=== PATIENT | male | born 1950 | race Caucasian/White ===

== ENCOUNTER → 2016-05-23 | Day surgery (SDC) | payer OTHER ==
[2016-05-11 14:52] VITALS: Ht 177.8 cm; Wt 96.8 kg
[~2016-05-23] VITALS: Ht 177.8 cm; Wt 96.8 kg
[~2016-05-23] MED LIST: 500ML BSS 0.3ML EPI 1:1000PF IRRIG ONE; ACETAMINOPHEN 325 MG TAB PO PRN; AMVISC PLUS 0.8ML SYRINGE INT OCU ONE; ASPCH81X PO; ATOR-24 PO; ATROPINE SULFATE 0.1 MG/ML 5ML SYR IV PRN; BSS FLUSH ONE; ENDOCOAT 0.85ML SYRINGE INT OCU ONE; EpINEphrine INJ 1MG/ML AMP 1 MG/ML AMP ONE; LACTATED RINGER'S 1000ML 500 ML IV SCH; LIDOCAINE 4% OP SOLN DROP CHARGE ONE; LIDOCAINE 4% OP SOLN DROP CHARGE OPL SCH; LIDOCAINE HCL 1% MPF 2 ML VIAL ONE; LSN/10125 PO; MIDAZOLAM HCL 1 MG/ML 2ML VIAL ONE; MIX: 4ML BSS 1ML EPI 1:1000 PF TOP ONE; MOXIFLOXACIN OPH SOLN PER DROP CHARGE ONE; POVIDONE-IODINE OP SOLN 30 ML BTL ONE; PRED1SUS3 OPL; PROPARACAINE 0.5% OP SOLN PER DROP CHARGE OPL SCH; TOBRAMYCIN/DEXAMETHASONE OPH OINT PER APPLN CHARGE ONE; VISCOAT 0.5ML SYRINGE INT OCU ONE
--- NOTE | 2016-05-23 08:34 | History & Physical Bridge - [place] ---
H&P Re-Evaluation Bridge Note: I have examined the patient, reviewed the History & Physical and in the interval since the performance of the History & Physical I have noted the following changes of clinical significance: No changes noted
[2016-05-23] MEDS: PHENYLEPHRINE HCL 2.5% OP SOLN PER DROP CHARGE OPL SCH ×3 (08:45→08:55)
[2016-05-23] MEDS: TROPICAMIDE 1% OP SOLN PER DROP CHARGE OPL SCH ×3 (08:46→08:56)
[2016-05-23] MEDS: CYCLOPENTOLATE HCL 1% OP SOLN PER DROP CHARGE OPL SCH ×3 (08:47→08:57)
[2016-05-23] MEDS: MOXIFLOXACIN OPH SOLN PER DROP CHARGE OPL SCH ×3 (08:48→09:08)
--- NOTE | 2016-05-23 09:49 | [facility] Post Operative Brief Note ---
Immediate Operative Summary Operative Date May 23, 2016. Pre-Operative Diagnosis Left Eye Cataract Post-Operative Diagnosis Same Procedure(s) Performed Left Eye Cataract Phacoemulsification With Intraocular Lens Implant Surgeon Dr. Bryd [employer] Leader Surgeon(s) None Estimated Blood Loss None Findings left cataract Specimens None Complication(s) None Disposition
--- NOTE | 2016-05-23 09:50 | [facility] Operative Report ---
Operative Report Date of Service May 23, 2016. Operative Report Phaco with monofocal IOL DATE OF OPERATION: 05/23/16 PREOPERATIVE DIAGNOSIS: Senile nuclear cataract, left eye POSTOPERATIVE DIAGNOSIS: Senile nuclear cataract, left eye PROCEDURE PERFORMED: Phacoemulsification with intraocular lens implantation, left eye SURGEON: Dr. Toro Byrd ANESTHESIA: Topical with 1% intracameral lidocaine and monitored anesthesia care COMPLICATIONS: None DESCRIPTION OF PROCEDURE: After positively identifying the patient both verbally and by wristband in the preoperative area, the left eye was marked as the operative eye. The patient was then brought back to the operating room by the anesthesia and nursing staff where they were given a drop of Lidocaine and betadine into the operative eye. They were then sterilely prepped and draped in the standard fashion typical for ophthalmic surgery. Steri-strips were placed along the upper eyelids to keep the lashes back, and a lid speculum was placed into the operative eye. At this point, a documented time out was performed with members of the ophthalmology, nursing, and anesthesia staffs all agreeing upon the correct patient, correct location for surgery, correct procedure, and correct type and power of intraocular lens to be implanted. The microscope was then swung into position. First, a paracentesis wound was made using a sideport blade. Then, in sequence, 1% preservative-free lidocaine followed by Endocoat viscoelastic was injected into the anterior chamber. Next , the main incision was made with a keratome blade in triplanar fashion. A sharp cystotome was introduced into the eye and used to create a tear in the anterior capsule, which was directed into a continuous curvilinear capsulorrhexis using Utrata forceps. Hydrodissection was then performed with BSS on a flat-tip cannula. Next, the phacoemulsification handpiece was introduced into the eye and used to remove the nucleus in a [id number] fashion. This was done without complication and then the irrigation-aspiration handpiece was introduced into the eye and used to remove all remaining cortical and epinuclear material. Amvisc was then injected into the anterior chamber as well as into the capsular bag and using the lens injector system, an MX60 15.5 D lens, serial number [id number], and expiration date 07/2018 was injected into the capsular bag and rotated into the correct position. Next, the irrigation- aspiration handpiece was used to remove all remaining Amvisc. BSS was used to hydrate the main wound, and then BSS was injected into the paracentesis site to reach physiologic pressure and then the main wound was checked and found to be watertight. The patient was given drops of Vigamox and Tobradex ointment into the operative eye, and then the surrounding area was cleaned and dried. A clear plastic shield was placed over the eye and the patient was then sat up and taken from the operating room by the anesthesia staff having tolerated the procedure well and suffering no complications. DISPOSITION: The patient was returned to the recovery room in stable condition. I attest to the content of the Intraoperative Record and any orders documented therein. Any exceptions are noted below.
--- NOTE | 2016-05-23 09:50 | Discharge Instructions-SurgCtr ---
Discharge Instructions Date of Service May 23, 2016. Visit Reason for Visit: Cataract Left Eye Discharge Discharge Diagnosis / Problem: left cataract Discharge Goals Goal(s): Decrease discomfort, Improve function Activity Recommendations Activity Limitations: as noted below Anesthesia . Post Anesthesia Instructions: If you have had General Anesthesia or IV Sedation: * Do not drive today. * Resume driving when surgeon permits. * Do not make important decisions or sign legal documents today. * Call surgeon for: 1. Temperature elevations greater than 101 degrees F. 2. Uncontrollable pain. 3. Excessive bleeding. 4. Persistent nausea and vomiting. 5. Medication intolerance (nausea, vomiting or rash). * For nausea and vomiting use only clear liquids such as: tea, soda, bouillon until nausea subsides, then gradually increase diet as tolerated. * If you have any concerns or questions, call your surgeon's office. If physician is unavailable and it is an emergency, call 911 or go to the nearest emergency room. . Instructions / Follow-Up Instructions / Follow-Up ACTIVITY RECOMMENDATIONS: * Light activities. * You may walk outside, read, watch television. * You may notice redness on the white part of the eye and some blurry vision - this is normal. MEDICATIONS: Resume previous medications unless instructed otherwise by your surgeon. Start all eye drops at 12 pm today: * Eye drops (today): Prednisone - one drop in operative eye every 2 hours while awake Ofloxacin - one drop in operative eye every 2 hours while awake SPECIAL CARE INSTRUCTIONS: * Tape plastic shield over eye to sleep at night. Call your doctor at with any concerns or problems. FOLLOW UP VISIT: Follow-up with Dr Byrd at [place] office as scheduled. Diet Recommendations Home Diet: no limitations Procedures Procedures Performed: Left Eye Cataract Phacoemulsification With Intraocular Lens Implant Pending Studies Studies pending at discharge: no Medical Emergencies . Who to Call and When: Medical Emergencies: If at any time you feel your situation is an emergency, please call 911 immediately. . Non-Emergent Contact Non-Emergency issues call your: Surgeon . . "Provider Documentation" section prepared by Toro Byrd.
[2016-05-23 09:52] VITALS: TEMP 36.6
[2016-05-23 10:09] VITALS: BP 131/79; PULSE 58; O2SAT 99
--- NOTE | 2016-05-23 10:10 | Anesthesia Progress Nt - [facility] ---
Anesthesia Post Op Note Date & Time May 23, 2016 at 10:10 Vital Signs Pain Intensity: 0 Vital Signs Past 12 Hours Date Time Temp Pulse Resp B/P Pulse Ox O2 Delivery O2 Flow Rate FiO2 05/23/16 09:52 36.6 55 18 131/74 96 Room Air 05/23/16 08:34 36.9 61 20 125/83 97 Room Air Notes Mental Status: alert / awake / arousable, participated in evaluation Pt Amnestic to Procedure: Yes Nausea / Vomiting: adequately controlled Pain: adequately controlled Airway Patency, RR, SpO2: stable & adequate BP & HR: stable & adequate Hydration State: stable & adequate Anesthetic Complications: no major complications apparent
== END | disposition home or self-care (01) ==
LOC: X.SURG 08:19
PROVIDERS: ATTEND Ophthalmology
DX: H25.12 Age-related nuclear cataract, left eye (principal); I10 Essential (primary) hypertension; E78.5 Hyperlipidemia, unspecified; I51.9 Heart disease, unspecified; Z79.82 Long term (current) use of aspirin

== ENCOUNTER → 2016-06-06 | Day surgery (SDC) | payer OTHER ==
[2016-05-31 07:44] VITALS: Ht 177.8 cm; Wt 96.8 kg
[~2016-06-06] VITALS: Ht 177.8 cm; Wt 96.8 kg
[~2016-06-06] MED LIST changes: +EpHEDrine SULFATE INJ 50 MG/ML AMP IV PRN; -LIDOCAINE 4% OP SOLN DROP CHARGE OPL SCH; +LIDOCAINE 4% OP SOLN DROP CHARGE OPR SCH; -PROPARACAINE 0.5% OP SOLN PER DROP CHARGE OPL SCH; +PROPARACAINE 0.5% OP SOLN PER DROP CHARGE OPR SCH; -VISCOAT 0.5ML SYRINGE INT OCU ONE
[2016-06-06] MEDS: MOXIFLOXACIN OPH SOLN PER DROP CHARGE OPR SCH ×3 (06:04→08:45)
[2016-06-06] MEDS: PHENYLEPHRINE HCL 2.5% OP SOLN PER DROP CHARGE OPR SCH ×3 (08:32→08:42)
[2016-06-06] MEDS: TROPICAMIDE 1% OP SOLN PER DROP CHARGE OPR SCH ×3 (08:33→08:43)
[2016-06-06] MEDS: CYCLOPENTOLATE HCL 1% OP SOLN PER DROP CHARGE OPR SCH ×3 (08:34→08:44)
--- NOTE | 2016-06-06 09:46 | [facility] Post Operative Brief Note ---
Immediate Operative Summary Operative Date Jun 06, 2016. Pre-Operative Diagnosis Cataract Right Eye Post-Operative Diagnosis Same Procedure(s) Performed Right Cataract Phacoemulsification With Intraocular Lens Implant Surgeon Dr. Byrd Fur Nailer Surgeon(s) None Estimated Blood Loss 0 mL Findings right cataract Specimens None Complication(s) None Disposition
--- NOTE | 2016-06-06 09:47 | [facility] Operative Report ---
Operative Report Date of Service Jun 06, 2016. Operative Report Phaco with monofocal IOL DATE OF OPERATION: 06/06/16 PREOPERATIVE DIAGNOSIS: Senile nuclear cataract, right eye POSTOPERATIVE DIAGNOSIS: Senile nuclear cataract, right eye PROCEDURE PERFORMED: Phacoemulsification with intraocular lens implantation, right eye SURGEON: Dr. Toro Byrd ANESTHESIA: Topical with 1% intracameral lidocaine and monitored anesthesia care COMPLICATIONS: None DESCRIPTION OF PROCEDURE: After positively identifying the patient both verbally and by wristband in the preoperative area, the right eye was marked as the operative eye. The patient was then brought back to the operating room by the anesthesia and nursing staff where they were given a drop of Lidocaine and betadine into the operative eye. They were then sterilely prepped and draped in the standard fashion typical for ophthalmic surgery. Steri-strips were placed along the upper eyelids to keep the lashes back, and a lid speculum was placed into the operative eye. At this point, a documented time out was performed with members of the ophthalmology, nursing, and anesthesia staffs all agreeing upon the correct patient, correct location for surgery, correct procedure, and correct type and power of intraocular lens to be implanted. The microscope was then swung into position. First, a paracentesis wound was made using a sideport blade. Then, in sequence, 1% preservative-free lidocaine followed by Endocoat viscoelastic was injected into the anterior chamber. Next , the main incision was made with a keratome blade in triplanar fashion. A sharp cystotome was introduced into the eye and used to create a tear in the anterior capsule, which was directed into a continuous curvilinear capsulorrhexis using Utrata forceps. Hydrodissection was then performed with BSS on a flat-tip cannula. Next, the phacoemulsification handpiece was introduced into the eye and used to remove the nucleus in a [id number] fashion. This was done without complication and then the irrigation-aspiration handpiece was introduced into the eye and used to remove all remaining cortical and epinuclear material. Amvisc was then injected into the anterior chamber as well as into the capsular bag and using the lens injector system, an MX60 16.0 D lens, serial number [id number], and expiration date 06/2017 was injected into the capsular bag and rotated into the correct position. Next, the irrigation- aspiration handpiece was used to remove all remaining Amvisc. BSS was used to hydrate the main wound, and then BSS was injected into the paracentesis site to reach physiologic pressure and then the main wound was checked and found to be watertight. The patient was given drops of Vigamox and Tobradex ointment into the operative eye, and then the surrounding area was cleaned and dried. A clear plastic shield was placed over the eye and the patient was then sat up and taken from the operating room by the anesthesia staff having tolerated the procedure well and suffering no complications. DISPOSITION: The patient was returned to the recovery room in stable condition. I attest to the content of the Intraoperative Record and any orders documented therein. Any exceptions are noted below.
--- NOTE | 2016-06-06 09:48 | Discharge Instructions-SurgCtr ---
Discharge Instructions Date of Service Jun 06, 2016. Visit Reason for Visit: Cataract Right Eye Discharge Discharge Diagnosis / Problem: right cataract Discharge Goals Goal(s): Decrease discomfort, Improve function Activity Recommendations Activity Limitations: as noted below Anesthesia . Post Anesthesia Instructions: If you have had General Anesthesia or IV Sedation: * Do not drive today. * Resume driving when surgeon permits. * Do not make important decisions or sign legal documents today. * Call surgeon for: 1. Temperature elevations greater than 101 degrees F. 2. Uncontrollable pain. 3. Excessive bleeding. 4. Persistent nausea and vomiting. 5. Medication intolerance (nausea, vomiting or rash). * For nausea and vomiting use only clear liquids such as: tea, soda, bouillon until nausea subsides, then gradually increase diet as tolerated. * If you have any concerns or questions, call your surgeon's office. If physician is unavailable and it is an emergency, call 911 or go to the nearest emergency room. . Instructions / Follow-Up Instructions / Follow-Up ACTIVITY RECOMMENDATIONS: * Light activities. * You may walk outside, read, watch television. * You may notice redness on the white part of the eye and some blurry vision - this is normal. MEDICATIONS: Resume previous medications unless instructed otherwise by your surgeon. Start all eye drops at 12 pm today: * Eye drops (today): Prednisone - one drop in operative eye every 2 hours while awake Ofloxacin - one drop in operative eye every 2 hours while awake SPECIAL CARE INSTRUCTIONS: * Tape plastic shield over eye to sleep at night. Call your doctor at with any concerns or problems. FOLLOW UP VISIT: Follow-up with Dr Byrd at [place] office as scheduled. Diet Recommendations Home Diet: no limitations Procedures Procedures Performed: Right Cataract Phacoemulsification With Intraocular Lens Implant Pending Studies Studies pending at discharge: no Medical Emergencies . Who to Call and When: Medical Emergencies: If at any time you feel your situation is an emergency, please call 911 immediately. . Non-Emergent Contact Non-Emergency issues call your: Surgeon . . "Provider Documentation" section prepared by Toro Byrd.
[2016-06-06 09:49] VITALS: TEMP 36.8
[2016-06-06 10:06] VITALS: BP 124/79; PULSE 59; O2SAT 96
--- NOTE | 2016-06-06 10:19 | Anesthesia Progress Nt - [facility] ---
Anesthesia Post Op Note Date & Time Jun 06, 2016 at 10:19 Vital Signs Pain Intensity: 0 Vital Signs Past 12 Hours Date Time Temp Pulse Resp B/P Pulse Ox O2 Delivery O2 Flow Rate FiO2 06/06/16 10:06 59 18 124/79 96 Room Air 06/06/16 09:49 36.8 57 16 130/79 95 Room Air 06/06/16 08:19 36.6 70 16 132/85 94 Room Air Notes Mental Status: alert / awake / arousable, participated in evaluation Pt Amnestic to Procedure: Yes Nausea / Vomiting: adequately controlled Pain: adequately controlled Airway Patency, RR, SpO2: stable & adequate BP & HR: stable & adequate Hydration State: stable & adequate Anesthetic Complications: no major complications apparent
== END | disposition home or self-care (01) ==
LOC: X.SURG 08:12
PROVIDERS: ATTEND Ophthalmology
DX: H25.11 Age-related nuclear cataract, right eye (principal); Z98.42 Cataract extraction status, left eye; I10 Essential (primary) hypertension; I51.9 Heart disease, unspecified; E78.5 Hyperlipidemia, unspecified

== ENCOUNTER 2018-01-29 09:56 | Inpatient (IN) ==
--- NOTE | 2018-01-10 10:05 | Anesthesiology Consultation ---
Date of Service January 10, 2018 Assessment & Plan Plan: - Patient states Dr. Ahumada told him to continue his lisinopril-HCTZ perioperatively. Left message with surgeon's office to make them aware that we typically have patients hold that medication AM DOS but to let us know if Dr. Ahumada feels that this medication needs to be continued perioperatively for BP control/aneurysms.* - Cardio= 12/19/17= "cleared from a cardiac standpoint for his upcoming surgical procedure." Chart Review Chart Review: Acceptable Risk for Surgery and Patient seen in Pre Admission Testing History Surgery Operation Date: 01/17/18 11:30 Proposed Procedures p Percutaneous Endovascular Aortic Aneurysm Repair, - Conrad Ahumada MD s Abdominal Aorta and Iliac Arteries - Conrad Ahumada MD Height/Weight Height: 5 ft 10.5 in Weight: 96.6 kg Allergies Allergy/AdvReac Type Severity Reaction Status Date / Time No Known Allergies Allergy Verified 01/10/18 09:47 Medications Home Medications Medication Instructions Recorded Confirmed Last Taken aspirin 81 mg PO QPM 01/10/18 01/10/18 Unknown atorvastatin 40 mg PO QPM 01/10/18 01/10/18 Unknown ibuprofen 200 mg PO QID PRN 01/10/18 01/10/18 Unknown indomethacin 50 mg PO BID PRN 01/10/18 01/10/18 Unknown lisinopril-hydrochlorothiazide 1 tab PO QAM 01/10/18 01/10/18 Unknown Past Medical History Medical History AAA (abdominal aortic aneurysm) REASON FOR PROCEDURE CAD (coronary artery disease) STENT X 1 TO RCA (2010) Gout Hearing deficit History of [place] (myocardial infarction) STENT X 1 TO RCA (2010) Hyperlipidemia Hypertension Iliac aneurysm REASON FOR PROCEDURE Obesity PAD (peripheral artery disease) Past Family History Family History Grandmother Family history of diabetes mellitus Mother Family history of diabetes mellitus Family/Other Family history of diabetes mellitus Past Surgical History Surgical History History of cardiac cath STENT X 1 TO RCA (2010) History of cataract surgery right and left Hx of colonoscopy Hx of wisdom tooth extraction Past Anesthesia History No Hx of Anesthesia Complications Patient denies family history of issues with anesthesia complications. History of PONV No Motion Sickness Screening History of Motion Sickness: No Social History Smoking Status: Former smoker Do You Dip or Chew Tobacco: No Smoking End Date: QUIT 2010 Hx Alcohol Use: Yes alcohol intake frequency: holidays/special occasions only Hx Substance Use: No Exercise / Class Metabolic Activity II 4-5 Yardwork/Stairs/Walk up hill Review of Systems Patient denies chest pain, shortness of breath, dyspnea on exertion, reflux, cough, wheezing, palpitations. Physical Exam Vital Signs VITALS BP 163/70 P 59 TEMP 98.1 RESP 18 SP02 98%RA Full neck and c-spine range of motion. Full TMJ range of motion. TMD 3 finger breaths Mallampati Score 2 Dentition: intact, caps on sides/molars Lungs: clear throughout to auscultation Cardiac: regular rate and rhythm, no murmurs noted Spine: normal Carotid arteries: negative bruit Extremities: no edema Testing Laboratory Results Blood Type O Positive 01/10/18 10:17 Antibody Screen NEGATIVE 01/10/18 10:17 01/10/18 WBC 7.5 H/H 15.3/47.3 PLATELETS 168 SODIUM 142 POTASSIUM 4.1 CHLORIDE 106 CO2 31 BUN 20 CREATININE 1.21 GLUCOSE 74 PT 10.4 PTT 30.0 INR 1.0 Electrocardiogram Date: 01/10/18 Findings: + SB @ (54) Chest X-Ray Date: 01/10/18 Findings: + NAD Mild left basilar opacity suggests atelectasis or epicardial fat pad. Echocardiogram Date: 06/17/15 EF 55-60%. Mild RVD/MENG. Thickened AV/MV. Borderline aortic root dilation. Grade I DD. Stress Test Date: 01/15/14 Type: nuclear No significant ischemia. No RWMA. LVEF 58%. 59% MPHR. Other Testing Chest CT= 12/23/17= Atherosclerosis with multifocal mild ectasia of the infrarenal abdominal aorta measures up to 2.8cm. B/L common iliac artery aneurysms (Right: 2.6cm, left: 3.1cm). Right internal iliac artery aneurysm 1.8cm (unchanged). Noncalcified atherosclerotic plaque results in a slightly greater degree of luminal stenosis in the left common iliac artery in comparison to the right. Bilateral adrenal nodules, indeterminant though statistically most likely benign adenomas. CTA Pelvis= 11/29/17= Bilateral common iliac artery aneurysms and a right internal iliac artery aneurysm as described above. 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
--- NOTE | 2018-01-10 10:12 | PAT Medication Instructions ---
Medication Instructions Date of Service January 10, 2018 Home Medications aspirin 81 mg PO QPM atorvastatin 40 mg PO QPM ibuprofen 200 mg PO QID PRN indomethacin 50 mg PO BID PRN lisinopril-hydrochlorothiazide 1 tab PO QAM Per surgeon's instructions ibuprofen 200 mg PO QID PRN indomethacin 50 mg PO BID PRN Hold the morning of surgery lisinopril-hydrochlorothiazide 1 tab PO QAM Take evening before surgery aspirin 81 mg PO QPM (okay to continue per surgeon) atorvastatin 40 mg PO QPM Other Notes If you have any questions please call us at [phone] or [phone] or [phone] or [phone]
--- NOTE | 2018-01-10 11:21 | XRay Report ---
XR chest Pre-admission PA/Lat CLINICAL HISTORY: Preoperative evaluation. COMPARISON STUDY: Chest radiograph January 23, 2013 2 FINDINGS: Mild left basilar opacity suggests atelectasis or epicardial fat pad. Cardiac size is at th e upper limits of normal. There is no evidence for pulmonary edema or pneumonia. No pneumothorax or p leural effusion is noted. IMPRESSION: No acute cardiopulmonary findings. Electronically signed by: Bebo Nava M.D. 01/10/2018 11:20 AM
--- NOTE | 2018-01-21 11:46 | Post Operative Brief Note ---
Immediate Post Op Note v1 Date of Surgery January 21, 2018 Pre & Post Diagnosis Operation Date: 02/11/18 07:30 <No data on this case meets the specified criteria> Procedure Operation Date: 02/11/18 07:30 <No data on this case meets the specified criteria> Surgeon Conrad Ahumada MD
--- NOTE | 2018-01-29 06:13 | History & Physical Report ---
Date of Service January 29, 2018 Assessment & Plan (1) AAA (abdominal aortic aneurysm) without rupture: Patient is admitted for a PEVAR of his abdominal aortoiliac aneuryusms. I have discussed the risks options and benefits of the procedure with the patient. The patient understands the risks options and benefits and agrees to the procedure. History of Present Illness Chief Complaint: AAA and iliac aneurysms Primary Care Provider: Jadiel Moya MD Mr. Te Hewitt is a 67-year-old male with a history of CAD, hypertension, hyperlipidemia with known iliac artery aneurysms. Patient last had imaging 2 years ago. He reports no major changes in his health during that time. He denies any chest, abdominal pain, or leg pain. He presents today with an ultrasound demonstrating an increase in the size of his aneurysms with the left iliac artery measuring 3.2 cm and the right common iliac measuring 2.5 cm. . The patient had a CTA done which suggested a 3.2 common iliac artery aneurysm on the left and a 2.6 cm common iliac artery aneurysm on the right. He was seen here to discuss possible surgical intervention due to the fact that the CT pelvis had indicated some aneurysmal dilation of his distal aorta, we did want to have better visualization of this and sent him for a full CTA abdomen and pelvis to better evaluate. This showed a small aaa as well. The CTA done prior to this appointment redemonstrates his bilateral common iliac artery aneurysms at 2.6 on the right and 3.1 on the left. His distal abdominal aorta is dilated to 2.9 cm. Allergies Allergy/AdvReac Type Severity Reaction Status Date / Time No Known Allergies Allergy Verified 01/10/18 09:47 Home Medications Home Medications Medication Instructions Recorded Confirmed Type aspirin 81 mg PO QPM 01/10/18 01/10/18 History atorvastatin 40 mg PO QPM 01/10/18 01/10/18 History ibuprofen 200 mg PO QID PRN 01/10/18 01/10/18 History indomethacin 50 mg PO BID PRN 01/10/18 01/10/18 History lisinopril-hydrochlorothiazide 1 tab PO QAM 01/10/18 01/10/18 History Past Med/Surg History Medical History AAA (abdominal aortic aneurysm) REASON FOR PROCEDURE CAD (coronary artery disease) STENT X 1 TO RCA (2010) Gout Hearing deficit History of [place] (myocardial infarction) STENT X 1 TO RCA (2010) Hyperlipidemia Hypertension Iliac aneurysm REASON FOR PROCEDURE Obesity PAD (peripheral artery disease) Surgical History History of cardiac cath STENT X 1 TO RCA (2010) History of cataract surgery right and left Hx of colonoscopy Hx of wisdom tooth extraction Family History Grandmother Family history of diabetes mellitus Mother Family history of diabetes mellitus Family/Other Family history of diabetes mellitus Social History Current Living Situation: Spouse Other Information That Helps Us Care for You: No Feels Safe at Home: Yes Safety Concerns: Feels Safe At This Time Smoking Status: Former smoker Do You Dip or Chew Tobacco: No Smoking End Date: QUIT 2010 Hx Alcohol Use: Yes Alcohol Intake Frequency: holidays/special occasions only Hx Substance Use: No Beliefs That Will Affect Care: None Preferred Language: Armenian Communication Ability: Effective Review of Systems All systems reviewed & are unremarkable except as noted in HPI & below Cardiovascular: no chest pain, no chest pain with activity, no dyspnea on exertion and no claudication Physical Exam 2 Vital Signs (Past 24 Hours): On exam, patient has a heart rate of 64, a blood pressure of 132/82 in the left arm, 130/64 in the right arm, satting at 98% on room air. He is a middle-aged gentleman, in no acute distress. Very pleasant. He is sitting up in the chair. No audible carotid bruits. Regular rate and rhythm of his heart. Chest is clear to auscultation bilaterally. He had palpable 2+ radial, femoral, DP, and PT pulses bilaterally. Abdomen was soft, nontender, nondistended, but was unable to appreciate any palpable pulsatile masses. Groin was soft bilaterally. No distal signs of ischemia. His feet were warm and well perfused with brisk cap refill. No wounds or ulcerations.
[~2018-01-29 09:56] MED LIST changes: -500ML BSS 0.3ML EPI 1:1000PF IRRIG ONE; -ACETAMINOPHEN 325 MG TAB PO PRN; -AMVISC PLUS 0.8ML SYRINGE INT OCU ONE; -ASPCH81X PO; -ATOR-24 PO; -ATROPINE SULFATE 0.1 MG/ML 5ML SYR IV PRN; -BSS FLUSH ONE; +CEFAZOLIN 2000MG 2,000 MG/15 ML SYR IV SCH; -ENDOCOAT 0.85ML SYRINGE INT OCU ONE; -EpHEDrine SULFATE INJ 50 MG/ML AMP IV PRN; -EpINEphrine INJ 1MG/ML AMP 1 MG/ML AMP ONE; -LACTATED RINGER'S 1000ML 500 ML IV SCH; -LIDOCAINE 4% OP SOLN DROP CHARGE ONE; -LIDOCAINE 4% OP SOLN DROP CHARGE OPR SCH; -LIDOCAINE HCL 1% MPF 2 ML VIAL ONE; +LR 15ML/HR IV SCH; -LSN/10125 PO; -MIDAZOLAM HCL 1 MG/ML 2ML VIAL ONE; -MIX: 4ML BSS 1ML EPI 1:1000 PF TOP ONE; -MOXIFLOXACIN OPH SOLN PER DROP CHARGE ONE; -POVIDONE-IODINE OP SOLN 30 ML BTL ONE; -PRED1SUS3 OPL; -PROPARACAINE 0.5% OP SOLN PER DROP CHARGE OPR SCH; +SODIUM CHLORIDE 0.9% 1000ML 1,000 ML IV SCH; +SODIUM CHLORIDE 0.9% 1000ML IV SCH; -TOBRAMYCIN/DEXAMETHASONE OPH OINT PER APPLN CHARGE ONE
[2018-01-29 10:44] LABS: BUN Creatinine Ratio 20.4 (10-20); Calcium 8.5 mg/dl (8.5-10.1); Creatinine Clr Calc Pharmacy 68.9 ml/min; Est GFR (African American) 69.8; Est GFR (Non-African American) 60.2; Potassium 3.9 mmol/L (3.5-5.1)
[2018-01-29] MEDS ORDERED: KETOROLAC TROMETHAMINE 15 MG/ML VIAL IV PRN (12:31)
[2018-01-29] MEDS ORDERED: fentaNYL citrate 100 MCG/2 ML VIAL IV PRN (12:31)
[2018-01-29] MEDS ORDERED: ATROPINE SULFATE 0.1 MG/ML 5ML SYR IV PRN (12:31)
[2018-01-29] MEDS ORDERED: LABETALOL HCL IV 5 MG/ML 20ML IV PRN (12:31)
[2018-01-29] MEDS ORDERED: ONDANSETRON INJ 2 MG/ML 2 ML VIAL IV PRN ×2 (12:31→17:47)
[2018-01-29] MEDS ORDERED: ePHEDrine sulfate 50 MG/ML AMP IV PRN (12:31)
[2018-01-29] MEDS ORDERED: DEXAMETHASONE SOD INJ 4 MG/ML VIAL IV PRN (12:31)
[2018-01-29] MEDS ORDERED: HYDROmorphone INJ 2 MG/ML SYR/VIAL IV PRN (12:31)
[2018-01-29] MEDS ORDERED: BUPIVACAINE/EPINEPHRINE 0.5% MPF 1:200,000 30 ML VIAL ONE (13:19)
[2018-01-29] MEDS ORDERED: MIDAZOLAM HCL 1 MG/ML 2ML VIAL ONE ×2 (13:24→13:26)
[2018-01-29] MEDS ORDERED: LIDOCAINE HCL 2% MPF (LOCAL) 5 ML VIAL INFIL ONE ×2 (13:24)
[2018-01-29] MEDS ORDERED: LARYING-O-JET KIT (LTA) ONE (13:25)
[2018-01-29] MEDS ORDERED: ePHEDrine sulfate 50 MG/ML SYR ONE (13:25)
[2018-01-29] MEDS ORDERED: fentaNYL citrate 100 MCG/2 ML VIAL ONE (13:25)
[2018-01-29] MEDS ORDERED: PROPOFOL IV EMULSION 10 MG/ML 20 ML VIAL IV ONE (13:25)
[2018-01-29] MEDS ORDERED: ROCURONIUM BROMIDE 10 MG/ML 5 ML VIAL ONE ×2 (13:25→16:01)
[2018-01-29] MEDS ORDERED: NEOSTIGMINE METHYLSULFATE 5 MG/5 ML SYR ONE (13:25)
[2018-01-29] MEDS ORDERED: HEPARIN SOD (PORCINE) 1000 UNIT/ML 10 ML VIAL ONE (13:25)
[2018-01-29] MEDS ORDERED: GLYCOPYRROLATE 0.2 MG/ML VIAL ONE ×2 (13:25→16:01)
[2018-01-29] MEDS ORDERED: PHENYLEPHRINE HCL 10 MG/ML VIAL ONE (13:25)
[2018-01-29] MEDS ORDERED: LIDOCAINE HCL 2% 2 ML VIAL/AMP(20MG/ML) INFIL ONE (13:25)
[2018-01-29] MEDS ORDERED: DEXAMETHASONE SOD INJ 4 MG/ML VIAL ONE (13:25)
[2018-01-29] MEDS ORDERED: ONDANSETRON INJ 2 MG/ML 2 ML VIAL ONE (13:25)
[2018-01-29] MEDS ORDERED: CEFAZOLIN 250 MG/ML 1 GM VIAL ONE (13:34)
[2018-01-29] MEDS ORDERED: HEPARIN (PORCINE) 1000 UNIT/ML 10 ML (CATH LAB USE ONLY) ONE (13:34)
[2018-01-29] MEDS ORDERED: THROMBIN FOR SOLN 20000 UNIT KIT ONE ×2 (13:35)
[2018-01-29] MEDS ORDERED: GELATIN SPONGE SZ 100 ONE (13:35)
--- NOTE | 2018-01-29 13:40 | History & Physical Bridge Note ---
Date of Service January 29, 2018 History & Physical Bridge Note I have examined the patient, reviewed the History & Physical and in the interval since the performance of the History & Physical I have noted the following changes of clinical significance: no changes noted
[2018-01-29] MEDS ORDERED: LIDOCAINE 2% JELLY 5 ML TUBE ONE (13:57)
[2018-01-29] MEDS ORDERED: HYDROmorphone INJ 2 MG/ML SYR/VIAL ONE (15:27)
[2018-01-29] MEDS ORDERED: ARISTA ABSORBABLE HEMOSTAT 3GM TOP ONE (15:49)
[2018-01-29] MEDS ORDERED: LABETALOL HCL IV 5 MG/ML 20ML IV ONE (16:01)
[2018-01-29] MEDS ORDERED: NITROGLYCERIN 5 MG/ML 10 ML VIAL ONE (16:01)
[2018-01-29] MEDS ORDERED: ePHEDrine sulfate 50 MG/ML AMP ONE (16:01)
--- NOTE | 2018-01-29 16:25 | Post Operative Brief Note ---
Immediate Post Op Note v1 Date of Surgery January 29, 2018 Pre & Post Diagnosis Operation Date: 01/29/18 12:00 Pre-Op Diagnosis: Abdominal Aortic Aneurysm, Iliac Artery Aneurysm Post-Op Diagnosis: Abdominal Aortic Aneurysm, Iliac Artery Aneurysm Procedure Operation Date: 01/29/18 12:00 PEVAR Abdominal aortic aneurysm Endovascular repair of left iliac artery aneurysm with bifurcated graft Bilateral cannulation of the aorta Right external iliac artery extension Percutaneous access left femoral artery Open repair of right femoral artery Embolization of right internal iliac artery Surgeon Conrad Ahumada MD Cigar Inspector none Estimated Blood Loss 120 Findings Consistent with Post-Op Diagnosis Drains Jackson Catheter (16 maori jackson catheter inserted by Milana Dahl RN, clear yellow urine return) Anesthesia Type General Complications none Disposition Accompanied Patient To Recovery: No Disposition: Recovery Room
[2018-01-29] MEDS ORDERED: VISIPAQUE IV ONE (16:54)
--- NOTE | 2018-01-29 17:05 | Anesthesiology Progress Note ---
Date of Service January 29, 2018 Anesthesia Post Procedure Vital Signs Vital Signs: Temp Pulse Pulse Resp BP Pulse Ox 01/29/18 17:00 36.6 C 56 L 19 132/79 96 01/29/18 16:50 58 L 16 138/79 95 01/29/18 16:40 58 L 12 143/95 H 98 01/29/18 16:30 36.4 C L 62 15 119/68 98 01/29/18 10:30 36.9 C 68 18 136/87 98 Pain Intensity Bilateral Groin: Pain Intensity: 0 Notes Mental Status: alert / awake / arousable Patient Amnestic to Procedure: Yes Nausea / Vomiting: adequately controlled Pain: adequately controlled Airway Patency, RR, SpO2: stable & adequate BP & HR: stable & adequate Hydration State: stable & adequate Anesthetic Complications: no major complications apparent
[2018-01-29 17:26] LABS: Basophils # (auto) 0.02 K/uL (0-0.2); Basophils % (auto) 0.2 %; Eosinophils # (auto) 0.12 K/uL (0-0.5); Hematocrit (blood only) 39.4 % (42-52); Hemoglobin 13.4 g/dL (14.0-18.0); Immature Granulocytes # (auto) 0.04 K/uL (0.00-0.02); Immature Granulocytes % (auto) 0.3 %; Lymphocytes # (auto) 1.69 K/uL (1.2-3.4); Lymphocytes % (auto) 14.4 %; Mean Corpuscular Volume 91.2 fL (80-100); Mean Platelet Volume 11.1 fL (7.4-10.4); Monocytes # (auto) 0.34 K/uL (0.11-0.59); Monocytes % (auto) 2.9 %; Neutrophils # (auto) 9.56 K/uL (1.4-6.5); Neutrophils % (auto) 81.2 %; Platelet Count 139 K/uL (130-400); RDW Standard Deviation 43.4 fL (36.4-46.3); Red Blood Count 4.32 M/uL (4.7-6.1); White Blood Count 11.77 K/uL (4.8-10.8)
[2018-01-29] MEDS ORDERED: MoRPHine SULFATE 4 MG/ML 1 ML CARP\\VIAL IV PRN (17:47)
[2018-01-29] MEDS ORDERED: INDOMETHACIN 25 MG CAP PO PRN (17:47)
[2018-01-29] MEDS ORDERED: OXYCODONE/ACETAMINOPHEN 5mg/325mg TAB PO PRN (17:47)
[2018-01-29] MEDS ORDERED: IBUPROFEN 200 MG TAB PO PRN (17:47)
[2018-01-29] MEDS: D5W AND 1/2NSS 1,000 ML IV SCH (18:22)
[2018-01-29] MEDS ORDERED: ASPIRIN 81 MG ECTAB PO SCH (21:00)
[2018-01-29] MEDS ORDERED: ATORVASTATIN 40 MG TAB PO SCH (21:00)
[2018-01-29] MEDS: CEFAZOLIN 1000MG 1,000 MG/7.5 ML SYR IV SCH (22:02)
[2018-01-30] MEDS: D5W AND 1/2NSS 1,000 ML IV SCH (01:24)
[2018-01-30 04:34] LABS: Basophils # (auto) 0.01 K/uL (0-0.2); Basophils % (auto) 0.1 %; Hematocrit (blood only) 39.7 % (42-52); Hemoglobin 13.4 g/dL (14.0-18.0); Immature Granulocytes # (auto) 0.04 K/uL (0.00-0.02); Immature Granulocytes % (auto) 0.2 %; Lymphocytes # (auto) 1.26 K/uL (1.2-3.4); Lymphocytes % (auto) 7.1 %; Mean Corpuscular Hgb Conc 33.8 g/dL (32-36); Mean Corpuscular Volume 91.1 fL (80-100); Mean Platelet Volume 10.7 fL (7.4-10.4); Monocytes # (auto) 1.19 K/uL (0.11-0.59); Monocytes % (auto) 6.7 %; Neutrophils # (auto) 15.32 K/uL (1.4-6.5); Neutrophils % (auto) 85.9 %; Platelet Count 175 K/uL (130-400); RDW Coefficient of Variation 12.9 % (11.5-14.5); RDW Standard Deviation 42.8 fL (36.4-46.3); Red Blood Count 4.36 M/uL (4.7-6.1); White Blood Count 17.82 K/uL (4.8-10.8)
[2018-01-30 04:55] LABS: Calcium 7.8 mg/dl (8.5-10.1); Creatinine Clr Calc Pharmacy 68.4 ml/min; Est GFR (African American) 69.1; Est GFR (Non-African American) 59.6; Potassium 4.4 mmol/L (3.5-5.1)
[2018-01-30] MEDS: CEFAZOLIN 1000MG 1,000 MG/7.5 ML SYR IV SCH (06:08)
--- NOTE | 2018-01-30 07:53 | Surgery Progress Note ---
Date of Service January 30, 2018 Assessment & Plan (1) AAA (abdominal aortic aneurysm) without rupture: Post PEVAR day 1. Doing well. If no bleeding from groin once ambulating may go home today. Subjective Does complain of mild right groin pain. No leg or foot pain. Physical Exam 2 Vital Signs (Past 24 Hours): Last Vital Signs Temp 37.2 C 01/30/18 03:47 Pulse 78 01/30/18 06:01 Resp 16 01/30/18 06:01 BP 133/82 01/30/18 06:01 Pulse Ox 95 01/30/18 06:01 Constitutional: WD/WN, vitals as above Cardiovascular: Rate/Rhythm: regular rate and regular rhythm Vessels: femoral pulses present Extremities: normal capillary refill Skin: + wound (clean and dry) Neurologic: Motor/Sensory: normal movement
[2018-01-30] MEDS ORDERED: ENOXAPARIN INJ 30 MG/0.3 ML SYR SQ SCH (08:00)
[2018-01-30] MEDS ORDERED: LISINOPRIL/HCTZ 10/12.5MG TAB PO SCH (09:00)
[2018-01-30] MEDS ORDERED: PANTOprazole 40 MG in SYRINGE 0 ML IV SCH (11:00)
--- NOTE | 2018-01-30 12:34 | Critical Care Consultation ---
Date of Consultation January 30, 2018 Assessment & Plan (1) AAA (abdominal aortic aneurysm) without rupture: Impression: 1. Peripheral arterial disease, status post AAA repair with PEVAR. 2. Coronary artery disease status post [place] artery stenting. 3. Hypertension. Plan: 1. Appreciate Dr. Choudhary input. 2. Restart the patient on his antihypertensive medications. 3. Ambulate the patient. 4. Tolerating oral intake. 5. DVT prophylaxis. 6. Disposition plan per Dr. Ahumada. 7. Patient is stable from critical care standpoint. 8. Discussed with the staff on rounds and details. CCM is 35 minutes. History of Present Illness Reason for Consultation: Post AAA repair. Requesting Physician: Dr. Ahumada Attending Physician: Conrad Ahumada MD History of Present Illness Dear Dr. Ahumada: Thank you for the kind referral of Mrs. Hewitt to the critical care service. This is a 67-year-old gentleman with a history of peripheral artery disease, ex- smoker quit 15 years ago, history of coronary artery disease status post stent of [place] artery, presented to the hospital for elective AAA repair with PEVAR, the patient did well postprocedure and presented to the ICU for further management and monitoring. Overnight no issues occurred. The patient did not have any hemodynamic instability. Hematocrit remained stable. He is asymptomatic. Does not feel significant increase in pain, nausea or vomiting. No shortness of breath or chest pain, does not use any inhalers at home. He is not on oxygen. The patient was ambulatory today and tolerated moderate exercise without any difficulties. Allergies Allergy/AdvReac Type Severity Reaction Status Date / Time cefazolin AdvReac Redness of Verified 01/30/18 08:19 Skin Home Medications Home Medications Medication Instructions Recorded Confirmed Type aspirin 81 mg PO QPM 01/10/18 01/29/18 History atorvastatin 40 mg PO QPM 01/10/18 01/29/18 History ibuprofen 200 mg PO QID PRN 01/10/18 01/29/18 History indomethacin 50 mg PO BID PRN 01/10/18 01/29/18 History lisinopril-hydrochlorothiazide 1 tab PO QAM 01/10/18 01/29/18 History oxycodone-acetaminophen 1 tab PO Q6H PRN #30 tab 01/30/18 Rx Patient History Medical History AAA (abdominal aortic aneurysm) REASON FOR PROCEDURE Gout Hearing deficit Hyperlipidemia Hypertension CAD (coronary artery disease) STENT X 1 TO RCA (2010) History of UT (myocardial infarction) STENT X 1 TO RCA (2010) Iliac aneurysm REASON FOR PROCEDURE Obesity PAD (peripheral artery disease) Surgical History History of cataract surgery right and left Hx of wisdom tooth extraction History of cardiac cath STENT X 1 TO RCA (2010) Hx of colonoscopy Family History Grandmother Family history of diabetes mellitus Mother Family history of diabetes mellitus Family/Other Family history of diabetes mellitus Social History Current Living Situation: Spouse Other Information That Helps Us Care for You: No Feels Safe at Home: Yes Safety Concerns: Feels Safe At This Time Smoking Status: Former smoker Do You Dip or Chew Tobacco: No Smoking End Date: QUIT 2010 Hx Alcohol Use: Yes Alcohol Intake Frequency: holidays/special occasions only Hx Substance Use: No Beliefs That Will Affect Care: None Preferred Language: Armenian Communication Ability: Effective Review of Systems Review of system was unremarkable except for the above. Physical Exam 2 Vital Signs (Past 24 Hours): Last Vital Signs Temp 37.2 C 01/30/18 03:47 Pulse 78 01/30/18 06:01 Resp 16 01/30/18 06:01 BP 133/82 01/30/18 06:01 Pulse Ox 95 01/30/18 06:01 Physical Exam: Vital signs are stable, blood pressure is also stable, S1-S2 regular rate and rhythm with systolic ejection murmur, distant breath sounds bilaterally, abdomen is benign, ecchymosis in the groins, no edema in the periphery. Results & Data Laboratory Results Labs are reviewed and are acceptable. Diagnostic Findings No new imaging.
--- NOTE | 2018-02-04 10:29 | Discharge Summary ---
Date of Service February 04, 2018 Admission HPI Per Admitting Provider Mr. Te Hewitt is a 67-year-old male with a history of CAD, hypertension, hyperlipidemia with known iliac artery aneurysms. Patient last had imaging 2 years ago. He reports no major changes in his health during that time. He denies any chest, abdominal pain, or leg pain. He presents today with an ultrasound demonstrating an increase in the size of his aneurysms with the left iliac artery measuring 3.2 cm and the right common iliac measuring 2.5 cm. . The patient had a CTA done which suggested a 3.2 common iliac artery aneurysm on the left and a 2.6 cm common iliac artery aneurysm on the right. He was seen here to discuss possible surgical intervention due to the fact that the CT pelvis had indicated some aneurysmal dilation of his distal aorta, we did want to have better visualization of this and sent him for a full CTA abdomen and pelvis to better evaluate. This showed a small aaa as well. The CTA done prior to this appointment redemonstrates his bilateral common iliac artery aneurysms at 2.6 on the right and 3.1 on the left. His distal abdominal aorta is dilated to 2.9 cm. Admission Exam Per Admitting Provider On exam, patient has a heart rate of 64, a blood pressure of 132/82 in the left arm, 130/64 in the right arm, satting at 98% on room air. He is a middle-aged gentleman, in no acute distress. Very pleasant. He is sitting up in the chair. No audible carotid bruits. Regular rate and rhythm of his heart. Chest is clear to auscultation bilaterally. He had palpable 2+ radial, femoral , DP, and PT pulses bilaterally. Abdomen was soft, nontender, nondistended, but was unable to appreciate any palpable pulsatile masses. Groin was soft bilaterally. No distal signs of ischemia. His feet were warm and well perfused with brisk cap refill. No wounds or ulcerations. Principal Diagnosis Abdominal Aortic Aneurysm, Iliac artery aneurysm Discharge Exam Constitutional WD/WN, vitals as above Cardiovascular Rate/Rhythm: regular rate and regular rhythm Vessels: femoral pulses present Extremities: normal capillary refill Skin + wound (clean and dry) Neurologic Motor/Sensory: normal movement Discharge Data Allergies Allergy/AdvReac Type Severity Reaction Status Date / Time cefazolin AdvReac Redness of Verified 01/30/18 08:19 Skin Consultations 01/29/18 17:47 Consult Lead Case Manager Routine Procedures Performed Operation Date: 01/29/18 12:00 Actual Procedures p Aorto Bi Iliac RPR- Percutaneous Endovascular Aortic Aneurysm Repair(Bilateral ) - MD danielle Chi Embolization Artery- Embolization Of Right Internal Iliac(Not Applicable) - MD danielle Chi AAA Closure Femoral Artery- Percutaneous Closure Of Left Femoral Artery(Left) - MD danielle Chi Femoral Cutdown- Open Access Right Femoral Artery(Right) - MD danielle Chi AAA Extension Initial- Bilateral Iliac Extensions(Bilateral) - Conrad Ahumada MD Ordered Studies 01/29/18 07:39 EV AAA repair aorta only Routine Hospital Course (1) AAA (abdominal aortic aneurysm) without rupture: Impression: 1. Peripheral arterial disease, status post AAA repair with PEVAR. 2. Coronary artery disease status post [place] artery stenting. 3. Hypertension. Pt did well after undergoing his EVAR and remained stable post operatively. Stable for d/c. Total Time Total Time Spent Total Time Spent (In Minutes): 15 minutes Total Time Includes: Discharge Planning, Medication Reconciliation and Communication With Other Providers Discharge Plan Discharge Items Patient Disposition: Home - Self-Care Reason For Visit: AAA, Iliac Art Aneurysm Discharge Diagnosis: AAA and iliac aneurysm Discharge Goals: Therapeutic intervention Activity: Per 'Additional Instructions' section Bathing Comment: may shower starting tomorrow Non-emergency contact: Surgeon Call non-emergency contact if: you have any medication questions, your symptoms worsen, your pain is not controlled, your pain is worsening, your pain is unusual for you, your pain is concerning for you, your temperature is above 101.5, your wound has increased redness, your wound has increased drainage and your wound pain has increased Follow-up/Referrals: Jadiel Moya MD [Primary Care Provider] - Diet: Heart Healthy Prescriptions: New oxycodone-acetaminophen 5-325 mg tablet 1 tab PO Q6H PRN (Reason: pain) Qty: 30 RF: 0 Continue atorvastatin 40 mg Tablet 40 mg PO QPM RF: 0 aspirin 81 mg Tablet,Delayed Release (Dr/Ec) 81 mg PO QPM RF: 0 indomethacin 50 mg Capsule 50 mg PO BID PRN (Reason: gout flare up) RF: 0 ibuprofen 200 mg Tablet 200 mg PO QID PRN (Reason: Pain) RF: 0 lisinopril-hydrochlorothiazide 10-12.5 mg Tablet 1 tab PO QAM RF: 0 Visit Report Forms: My [facility] Discharge Orders: Discharge Order (Routine); Ordered 01/30/18 Ordered By: Conrad Ahumada Admission Data Admit Date/Time: 01/29/18 16:26 Attending Provider: Conrad Ahumada Admit Provider: Conrad Ahumada Primary Care Provider: Jadiel Moya Other Providers: Miko Hernandez Service: Intensive Care Unit Other Interventions: Discharge Summary Assessment (RN) Last Done: 01/30/18 13:02 DC Date/Time DO NOT enter until pt leaves facility: 01/30/18 14:21
--- NOTE | 2018-03-11 13:54 | Operative Report ---
Post Operative Report Pre & Post Diagnosis Operation Date: 01/29/18 12:00 Pre-Op Diagnosis: Abdominal Aortic Aneurysm, Iliac Artery Aneurysm Post-Op Diagnosis: Abdominal Aortic Aneurysm, Iliac Artery Aneurysm Procedure Operation Date: 01/29/18 12:00 Actual Procedures p Aorto Bi Iliac RPR- Percutaneous Endovascular Aortic Aneurysm Repair(Bilateral ) - MD danielle Chi Embolization Artery- Embolization Of Right Internal Iliac(Not Applicable) - MD danielle Chi AAA Closure Femoral Artery- Percutaneous Closure Of Left Femoral Artery(Left) - MD danielle Cih Femoral Cutdown- Open Access Right Femoral Artery(Right) - MD danielle Chi AAA Extension Initial- Bilateral Iliac Extensions(Bilateral) - Conrad Ahumada MD Surgeon Conrad Ahumada MD Student Officer none Estimated Blood Loss 120 Findings Consistent with Post-Op Diagnosis Specimens None Anesthesia Type General Complications none Disposition Accompanied Patient To Recovery: No Disposition: Recovery Room Indications This is a 67-year-old gentleman with bilateral iliac artery aneurysms that are enlarged. He also has a small abdominal aortic aneurysm. Endovascular repair was recommended as well as an endovascular bifurcated repair of the left common iliac artery and embolization of the right internal iliac artery. I have discussed the risks options and benefits of the procedure with the patient. The patient understands the risks options and benefits and agrees to the procedure. Description of Procedure Patient was taken to the operating placed in the supine position. General anesthesia was accomplished. After the abdomen and groins were prepped and draped in a sterile manner percutaneous puncture was made of the left common femoral artery. A 5 Spanish sheath was inserted. This was confirmed with a hand injection. Puncture site was in the common femoral artery anteriorly. 2 Perclose devices were then inserted and the puncture site was preclosed. A 035 catheter room catheter was then used in the right iliac was cannulated from the left side. A destination sheath was inserted over the wire once the internal iliac was cannulated on the right side. This testing she was inserted into the origin of the right internal iliac artery positioning was confirmed with hand injections. A 12 mm Amplatzer plug was then inserted into the right internal iliac artery just beyond its origin. Good positioning was seen. The sheath was then removed and an 035 wire was was inserted. This was exchanged using a Kumpe catheter to a stiff and [place] wire. The 5 Spanish sheath was then exchanged to a 18 Spanish sheath. That point the right common femoral artery was punctured. A 5 Spanish sheath was inserted over the wire positioning was again confirmed. The puncture site was anterior in the main part of the common femoral artery. 2 Perclose devices were used to pre-close the puncture site. The puncture site was then dilated until an 18 Spanish sheath was inserted. This was passed up to the midportion of the right common iliac artery. The 035 another 035 wire was inserted. This was snared from the left side and brought out through the left sheath. The 23 x 12 x 10 iliac branch graft was inserted through the left groin. It was positioned in the left iliac artery with the gait overlying the internal iliac. Once this was deployed the a 12 Spanish sheath was inserted through the 18 Spanish sheath in the right side. This was passed over the wire that was a rail. A 12 Spanish sheath was advanced into the bifurcated graft. We then used an 035 guidewire and cannulated the internal iliac artery through the gait. We then used a a 10 cm limb into the bifurcated iliac graft. This was deployed at this line into the distal end of the iliac internal iliac. Both the internal iliac limb and the ipsilateral limb of the iliac bifurcated graft was dilated with appropriate size balloons. The main body was then also dilated to expand the proximal and slightly per we then remove the wire rail. We passed both stiffing wires back up into the aorta. Dilators were then used and these sheaths were advanced into the abdominal aorta. Pigtail was inserted up the left side. Right side we inserted a 26 x 12 x 18 main body graft. Arteriography was performed marking the renal arteries. The graft was then deployed just below the renal arteries. Another injection was done confirming the positioning. Positioning was and it was adequate and we then deployed the hooks. The gait was then cannulated using a Kumpe catheter and 035 wire from the left side. We then recannulated the gait with the sheath from the left side. Then use a 16 x 12 x 7 iliac contralateral limb. We then deployed the right limb. We then used a 10 cm long extension on the right side. This was to seal beyond the internal iliac origin on the right. Completion angiogram showed a small type II endoleak present in the distal aorta. No type I endoleak's were seen. There is excellent flow into the right internal iliac artery and occlusion of the left internal iliac artery at the Amplatzer plug. We then remove the sheath in the left groin. The puncture site was closed using a Perclose devices. Adequate hemostasis was seen. Right side the sheaths were removed Perclose devices were tightened. There was not adequate hemostasis noted at the right groin. We therefore cut down on the right groin. This was done after the sheath was reinserted over the wire. The common femoral artery was then exposed on the right side. Once exposure and control of the common femoral artery was obtained the sheath and wire were removed. Puncture site was then closed using a 5-0 Prolene suture. Adequate hemostasis was then noted. This wound was then closed with a running 2 -0 Vicryl suture the femoral sheath 3-0 Vicryl for the simultaneously and mathew for the skin. Sterile dressings were applied to the wounds.The patient left the operation room in satisfactory condition and tolerated the procedure well. All needle and sponge counts were correct at the end of the procedure. I attest to the content of the Intraoperative Record and any orders documented therein. Any exceptions are noted below.
== END 2018-01-30 14:21 | disposition home or self-care (01) | DRG 269 ==
LOC: ASU 09:56 → 1E 16:26